=== PATIENT | female | born 1965 | race Caucasian/White ===

== ENCOUNTER → 2017-03-31 | Day surgery (SDC) | payer OTHER ==
[~2017-03-31] MED LIST: AUGMENTIN 875-1 EACH PO; Calcium Carbonate PO; DEPAKOTE500 MG PO; FENTANYL CITRATE/PF 100MCG/2 ML INJ ONE; GEODON20 M1 PO; HALCION0.25 MG PO; HYDROXYZINE HCL25 MG PO; HYOSCYAMINE SULFATE 0.5 MG/ML AMP ONE; IBUPROFEN400 MG PO; LIDOCAINE HCL 2% LOCAL INJ 5 ML SDV VIAL INJ ONE; LISINOPRIL30 MG; LISINOPRIL40 MG PO; LITHIUM CARBON300 M2 PO; MIDAZOLAM HCL 2 MG/2 ML VIAL ONE; MS CONTIN30 MG PO; Multivitamins/Minerals PO; OMEPRAZOLE20 MG PO; PROPOFOL IV EMULSION 10 MG/ML 50 ML VIAL ONE; PROZAC20 MG PO; PROZAC40 MG; SENOKOT8.6 MG PO; SEROQUEL100 MG PO; SUCRALFATE1 GM PO; SYNTHROID100 MCG PO; SYNTHROID25 MCG PO; TEGRETOL XR200 MG; TRAZODONE HCL100 MG; TYLENOL WITH C1 EACH PO; ULTRAM50 MG PO; WELLBUTRIN SR150 MG PO; ZOFRAN ODT4 MG PO
[2017-03-31 13:48] LABS: WBC,FECAL (FECAL LACTOFERRIN) NEGATIVE (NEGATIVE)
--- NOTE | 2017-03-31 14:02 | Operative Report ---
DATE OF PROCEDURE: March 31, 2017 REFERRING PHYSICIAN: Dr. Clementine Bolanos. PROCEDURE PERFORMED: 1. Esophagogastroduodenoscopy with biopsies. 2. Colonoscopy with polypectomy and biopsies. INDICATIONS FOR ESOPHAGOGASTRODUODENOSCOPY: Heartburn indigestion. INDICATIONS FOR COLONOSCOPY: Colorectal cancer screening, history of diarrhea, anemia. MEDICATION: Patient was done under MAC. Please see anesthesiologist's note. PROCEDURE: With the patient in the left lateral decubitus position, the flexible fiberoptic Olympus gastroscope was introduced into the esophagus under direct visualization without any difficulty. There was some patchy erythema noted in the distal esophagus. Some minimal focal nodularity was noted at the GE junction, and that was biopsied. The scope was then advanced with ease into the stomach, traversing a small hiatal hernia. Gastric stapling site was noted at approximately 10 cm distal to the lower esophageal sphincter. The anastomosis was patent, and it was traversed with ease with the scope, which was advanced into the distal stomach. Mucosa overlying the distal body and the antrum revealed some patchy erythema and low-grade to moderate edema, and biopsies were obtained and sent to stain for H. pylori. Pylorus appeared to be of normal contour and shape, was intubated with ease, and the scope was advanced all the way to the 2nd portion of the duodenum. Biopsies were obtained from the proximal 2nd portion to rule out sprue. Mucosa overlying the duodenal bulb appeared to be within normal limits. The scope was then withdrawn back into the stomach, and it was withdrawn above the gastric stapling site and then it was retroflexed. The mucosa overlying the fundus and the cardia appeared to be within normal limits. The scope was then straightened out. The scope was subsequently withdrawn. Patient tolerated procedure well. IMPRESSION: 1. Distal esophagitis. 2. Minimal nodularity at gastroesophageal junction biopsied. 3. Small hiatal hernia. 4. Status post gastric stapling. Stapling site patent. 5. Gastritis biopsied. Biopsies sent to stain for H. pylori. 6. Rule out sprue. PLAN: Follow up histology. Initiate Protonix 40 mg 1 p.o. q.a.m. a.c. Patient was then turned around and after adequate lubrication of the anal canal, a flexible fiberoptic Olympus colonoscope was inserted into the rectum with ease and advanced all the way to the cecum. Mucosa overlying the cecum appeared to be within normal limits. The ileocecal valve was intubated, and the scope was advanced into the terminal ileum. Biopsies were obtained. The scope was then withdrawn back into the colon. It was then withdrawn slowly. Mucosa overlying the ascending colon appeared to be within normal limits. One polyp was hot biopsied from the transverse colon. Mild patchy inflammatory changes were noted in the left colon. Random biopsies were obtained. Two polyps were hot biopsied from the sigmoid colon. The scope was then retroflexed into the distal rectum and small internal hemorrhoids were noted, none of which was actively bleeding. The scope was then straightened out. The scope was subsequently withdrawn after securing an adequate stool specimen that was sent for the appropriate stool studies. Patient tolerated the procedure well. IMPRESSION: 1. Transverse colon polyp hot biopsied. 2. Mild patchy left-sided colitis. 3. Sigmoid colon polyps times 2 hot biopsied. 4. Internal hemorrhoids, none actively bleeding. PLAN: Follow up histology. Follow up stool studies. Initiate VSL#3 one p.o. b.i.d. Start Bentyl 10 mg 1 p.o. t.i.d. RectiCare with lidocaine 5% apply p.r.n. to perianal area. Job#: [id number] EV cc: CLEMENTINE BOLANOS MD
[2017-03-31 15:04] LABS: C DIFFICILE TOXIN A&B AMP PROB **POSITIVE** (NEGATIVE)
== END | disposition home or self-care (01) ==
LOC: OR 10:21
PROVIDERS: ATTEND Internal Medicine Gastroenterology
DX: D64.9 Anemia, unspecified (principal); D12.3 Benign neoplasm of transverse colon; K51.50 Left sided colitis without complications; K22.8 Other specified diseases of esophagus; K21.0 Gastro-esophageal reflux disease with esophagitis; K44.9 Diaphragmatic hernia without obstruction or gangrene; Z98.84 Bariatric surgery status; K64.8 Other hemorrhoids; E03.9 Hypothyroidism, unspecified; D69.6 Thrombocytopenia, unspecified; N20.0 Calculus of kidney; I10 Essential (primary) hypertension; F31.9 Bipolar disorder, unspecified; F41.9 Anxiety disorder, unspecified; F17.210 Nicotine dependence, cigarettes, uncomplicated; Z01.810 Encounter for preprocedural cardiovascular examination; Z68.38 Body mass index [BMI] 38.0-38.9, adult; Z83.79 Family history of other diseases of the digestive system
CPT/HCPCS: 43239; 45384; 83630; 83993; 87045; 87177; 87328; 87493; 93005; J1980; J2001; J2250; 45378

== ENCOUNTER 2018-12-15 08:21 | Emergency (ER) | payer OTHER ==
[~2018-12-15] VITALS: Ht 170.2 cm; Wt 127.0 kg
[~2018-12-15 08:21] MED LIST changes: -FENTANYL CITRATE/PF 100MCG/2 ML INJ ONE; -HYOSCYAMINE SULFATE 0.5 MG/ML AMP ONE; -LIDOCAINE HCL 2% LOCAL INJ 5 ML SDV VIAL INJ ONE; -MIDAZOLAM HCL 2 MG/2 ML VIAL ONE; -PROPOFOL IV EMULSION 10 MG/ML 50 ML VIAL ONE
--- OUTSIDE RECORDS SUMMARY | 2018-12-15 08:24 | XMS REPORT | Encounter Summary ---
Author Organization Unknown Address [address] [place] [address] Phone [phone] Care Team Providers Care Lead Medical Technologist Name Role Phone Dr. Emma Bolanos 3 [phone] Emma Bolanos MD 3 [phone] Eduin Amaro MD 82 [phone] [facility] 2 [phone] Keegan Hyatt MD 124 [phone] Reason for Visit Hypercholesterolemia; Benign essential hypertension; Bipolar disorder; other - see typed reason Instructions 1. Benign essential hypertension lisinopril 40 mg tablet CBC w/ auto diff TSH, serum or plasma 2. Bipolar disorder bipolar disorder: care instructions learning about mood disorders 3. Abnormal weight gain endocrinology, diabetes & metabolism referral - PLEASE FAX NOTES TO [phone]. 4. Hypercholesterolemia lipid panel, serum CMP, serum or plasma 5. Increased frequency of urination HbA1c (hemoglobin A1c), blood urinalysis, dipstick 6. Tobacco user stopping smoking: care instructions 7. Family history of premature coronary heart disease cardiology referral - PLEASE FAX NOTES TO [phone]. 8. Lateral epicondylitis of right humerus tennis elbow strap Discussion Note: None recorded. Plan of Care Reminders Provider Appointments Est Patient 06/11/2018 1:30PM Emma Bolanos MD Lab HbA1C (Hemoglobin a1C), Blood 05/14/2018 [facility] Urinalysis, Dipstick 05/14/2018 [facility] ([facility] Labelle Lipid Panel, Serum 05/14/2018 [facility] CMP, Serum or Plasma 05/14/2018 [facility] CBC W/ Auto Diff 05/14/2018 [facility] TSH, Serum or Plasma 05/14/2018 [facility] Referral Cardiology Referral 05/14/2018 Eduin Amaro MD Endocrinology, Diabetes & Metabolism Referral 05/14/2018 Zane Platt MD (Endocrinology) Procedures None recorded. Surgeries None recorded. Imaging None recorded. Medications Name Start Date acetaminophen 300 mg-codeine 30 mg tablet TID - PRN acetaminophen 300 mg-codeine 60 mg tablet benztropine 0.5 mg tablet bupropion HCl SR 200 mg tablet,12 hr sustained-release Take 1 tablet twice a day by oral route. dicyclomine 10 mg capsule TAKE 1 CAPSULE BY MOUTH TWICE DAILY divalproex ER 500 mg tablet,extended release 24 hr hydroxyzine HCl 50 mg tablet Take 1 tablet every day by oral route at bedtime. ibuprofen 800 mg tablet lisinopril 40 mg tablet TAKE 1 TABLET BY MOUTH ONCE A DAY metronidazole 500 mg tablet omeprazole 20 mg capsule,delayed release TAKE 1 CAPSULE BY MOUTH ONCE A DAY triazolam 0.25 mg tablet Take 1 tablet every day by oral route at bedtime. ziprasidone 40 mg capsule Take 1 capsule twice a day by oral route for 90 days. Medications Administered None recorded. Vitals Height Weight BMI Blood Pressure 5 ft 7 in 261 lbs 40.9 kg/m2 (1) 140/80 mm[Hg] (2) 142/82 mm[Hg] Lab Results Date Name Specimen Result Interpretation Description Value Range Status Address 05/14/2018 CBC W/ Auto Diff Wbc 6.28 x10*3/L 3.98-10.04 x10*3/L Final [facility] Laboratory: [address] Rbc 4.73 10*12/L 3.93-5.22 10*12/L Final [facility] Laboratory: [address] Hemoglobin 12.30 g/dL 11.20-15.70 g/dL Final [facility] Laboratory: [address] Hematocrit 38.3 % 34.1-44.9 % Final [facility] Laboratory: [address] Mcv 81.0 fL 80.0-100.0 fL Final [facility] Laboratory: [address] Mch 26.0 pg 25.6-32.2 pg Final [facility] [facility] [address] Low Mchc 32.1 g/dL 32.2-35.5 g/dL Final [facility] Laboratory: [address] RDW-SD 44.9 fL 36.4-46.3 fL Final [facility] Laboratory: [address] [place] Platelet Count 248.0 k/uL 182.0-369.0 k/uL Final [facility] Laboratory: [address] [place] High Mpv 11.6 fL 7.5-11.5 fL Final [facility] Laboratory: [address] [place] Neut% 57.5 % 34.0-71.1 % Final [facility] Laboratory: [address] [place] Lymph% 30.7 % 19.3-51.7 % Final [facility]: [address] [place] Mon% 10.4 % 4.7-12.5 % Final [facility]: [address] [place] Eos% 1.1 % 0.7-5.8 % Final [facility] Laboratory: [address] [place] Baso% 0.3 % 0.1-1.2 % Final [facility] Laboratory: [address] [place] Neut# 3.6 x10*3/L 1.6-6.1 x10*3/L Final [facility] Laboratory: [address] [place] Lymph# 1.9 x10*3/L 1.2-3.7 x10*3/L Final [facility] Laboratory: [address] [place] Mon# 0.7 x10*3/L 0.2-0.9 x10*3/L Final [facility] Laboratory: [address] [place] Eos# 0.07 x10*3/L 0.04-0.36 x10*3/L Final [facility] Laboratory: [address] [place] Baso# 0.02 x10*3/L 0.01-0.08 x10*3/L Final [facility] Laboratory: [address] [place] 05/14/2018 CMP, Serum or Plasma Alt 24 U/L 0-55 U/L Final [facility] [address] [facility] Ast 25 U/L 5-34 U/L Final [facility] Laboratory: [address], [place] Bun 13.2 mg/dL 9.8-20.1 mg/dL Final [facility] Laboratory: [address], [place] Alk Phos 51 unit/L 40-150 unit/L Final [facility] Laboratory: [address], [place] Glucose 95 mg/dL 70-99 mg/dL Final [facility] Laboratory: [address], [place] Albumin 3.9 g/dL 3.5-5.0 g/dL Final [facility] Laboratory: [address], [place] Creatinine 0.80 mg/dL 0.57-1.11 mg/dL Final [facility] Laboratory: [address], [place] eGFR Non- >60 mL/min/1.73m2 Final [facility] [address] [facility] Total Bilirubin 0.2 mg/dL 0.2-1.2 mg/dL Final [facility] [address] [facility] eGFR - >60 mL/min/1.73m2 Final [facility] [address] [facility] Sodium 141 mEq/L 136-145 mEq/L Final [facility] Laboratory: [address], [place] Potassium 4.5 mEq/L 3.5-5.1 mEq/L Final [facility] [address] [facility] Chloride 104 mmol/L 98-107 mmol/L Final [facility] Laboratory: [address], [place] Total Protein 7.3 g/dL 6.4-8.3 g/dL Final [facility] [address] [facility] Calcium 9.8 mg/dL 8.4-10.2 mg/dL Final [facility] Laboratory: [address], [place] High Co2 32.0 mmol/L 22.0-29.0 mmol/L Final [facility] Laboratory: [address], [place] Anion Gap 5 calc Final [facility] [address] [facility] 05/14/2018 Lipid Panel, Serum High Hdl 65 mg/dL 40-60 mg/dL Final [facility] Laboratory: [address] High Triglyceride 257 mg/dL 0-149 mg/dL Final [facility] Laboratory: [address] VLDL Calc. 51 mg/dL Final [facility]: [address] cholesterol/HDL Ratio 3.2 mg/dL Final [facility] Laboratory: [address] non-HDL Cholesterol Calc. 145 mg/dL 0-160 mg/dL Final [facility] Laboratory: [address] High Cholesterol 210 mg/dL 0-199 mg/dL Final [facility] Laboratory: [address] LDL Calc. 94 mg/dL 0-130 mg/dL Final [facility] Laboratory: [address] [place] [address], [place] 05/14/2018 TSH, Serum or Plasma Tsh 4.574 uIU/mL 0.350-4.940 uIU/mL Final [facility] Laboratory: [address] [place] [place] [address], [place] 05/14/2018 HbA1C (Hemoglobin a1C), Blood A1C W/eag 5.7 % 1.0-5.7 % Final [facility] Laboratory: [address] Average Blood Glucose 117 mg/dL Final [facility] Laboratory: [address] [place] [address], [place] 05/14/2018 Urinalysis, Dipstick Color Color yellow [facility] ([facility]) Labelle: [address] [place] Color Appearance clear [facility] ([facility] Label[place]: [address] [place] Color Glucose negative [facility] ([facility] [place]: [address] [place] Color Bilirubin small [facility] ([facility]) [place]: [address] [place] Color Ketones trace [facility] ([facility]) Labelle: [address] [place] Color Specific [place] 1.030 [facility] ([facility]) [place]: [address] [place] Color Blood negative [facility] ([facility]) Labelle: [address] [place] Color PH 5.5 [facility] ([facility] [place]: [address] [place] Color Protein negative [facility] ([facility]) [place]: [address] [place] Color Urobilinogen 0.2 [facility] ([facility]) Labelle: [address] [place] Color Nitrites negative [facility] ([facility]) [place]: [address] [place] Color Leukocytes negative [facility] ([facility]) Labelle: [address] [facility], [place] Allergies Code Code System Name Reaction Severity Status Onset NKDA Problems Name Status Onset Date Source Body Mass Index 30+ - Obesity Active 01/08/2016 Bipolar Disorder Active 01/08/2016 Benign Essential Hypertension Active 01/08/2016 Gastroesophageal Reflux Disease without Esophagitis Active 01/08/2016 Atypical Chest Pain Active 01/08/2016 High Hemoglobin a1C Level Active 02/11/2016 Dysfunctional Voiding of Urine Active 02/11/2016 Blood Chemistry Abnormal Active 02/11/2016 Hypercholesterolemia Active 03/28/2016 Polyp of Colon Active 08/05/2017 Hypothyroidism Active Chronic Pain Active Hypertensive Disorder Active Procedures Date Name Performed by 09/23/2015 Colonoscopy Information not available 06/21/2015 Gastrointestinal Surgery Information not available 02/20/2015 Carpal Tunnel Surgery Information not available Gastric Bypass for Obesity Information not available Cholecystectomy (Gall Bladder Removal) Information not available Hysterectomy (Partial) Information not available Vaccine List Vaccine Type Tdap 02/11/20160.5 mL Social History Smoking Status Light Tobacco Smoker (1/4 PPD) Past Encounters 05/14/2018 Benign Essential Hypertension; Bipolar Disorder; Abnormal Weight Gain; Hypercholesterolemia; Increased Frequency of Urination; Tobacco User; Family History of Premature Coronary Heart Disease; Lateral Epicondylitis of Right Humerus Emma Bolanos MD: [address] [place] [phone], Ph. History of Present Illness Note:53yo female presents for follow-up. Last visit 08/28/17. Several concerns today:<div>1) Elbow pain- Since last visit, pt has been having trouble with bilateral elbow pain for past month starting with right elbow then left. Has been seeing pain management, Dr Hyatt & had XR of right elbow last month in [place]. Pt did not have any pain relief with T#3 for her elbows, but did get some relief with ibuprofen 800mg two tablets once a day. 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 Pt is right handed. <div><div>Chronic back pain -. Had spinal cord stimulator placed 4yrs ago, but had complications. Is followed by pain management, Dr. Keegan Hyatt. No longer on morphine.</div><div>
< /div><div>2) Pt notes that she's not doing very well with her bipolar d/o - depressed mood right now. Has been off Geodon for past 4months - was causing weight gain. </div><div>Saw MALLORIE Price for weight control in Feb 2018, but not improvement. Went to [facility]. Is trying to watch diet. Tapered off Geodon by psych, Dr Massey. Goes to psych every three months. Was seen by psych last month.</div><div>Is discouraged about weight. Has gained 60# in past 2yrs. Had gastric bypass about 25yrs ago. Has gastric ring removed 2yrs ago bariatric surgeon at [facility], Dr Olmedo.
</div><div>
</div><div>3) Shortness of breath with exertion. Pt attributes this to weight gain & deconditioning. Strong family hx of premature heart disease. Brother at age 52 from [place]. Father at 52yo from [place] (had liver transplant). Mother at 52yo from anxiety attack & [place] (hx COPD & CHF).</div><div>Here today for medication refill of htn medication.</div><div>Has been sober off drugs (crack cocaine) for past 2yrs. Has smoked about 30yrs - was at 1ppd most of that time. Now down to 2-3 cigarettes/day.</div><div>
</div><div>Previously:
</div>< div><div><span style="font-size: 14px;">Pt has established with a new psychiatrist in [place] at [facility], </span>Shilpa<span style="font-size: 14px;">. Still on Wellbutrin SR </span>200mg<span style="font- size: 14px;"> bid & depakote ER </span>500mg<span style="font-size: 14px;"> two tablets at night. Pineda isn't working well for sleep. Was on Ambien in [facility]. Has been on Trileptal, Tegretol, Donalds, Zyprexa, Seroquel, Risperdal, tra zadone Request hydroxyzine to help with evelin. Has seen </span>Lalita<span style="font-size: 14px;"> in same psychiatry office. Is planning to follow-up with </span>Jhon<span style="font-size: 14px;">. Has been on several different psych medications since Sep.</span></div><div><div>
</div><div><div ><div>PMHx:</div><div>Hx of bipolar d/o (dx'd about 20yrs ago). Using hydroxyzine to 'calm down' currently.
<span style="font-size: 14px;">Htn - Currently on lisinopril </span>40mg<span style="font-size: 14px;"> qd. </span>Hx <span style="font-size: 14px;"> of htn for </span>20yrs<span style="font-size: 14px;">.</span>
</div><div>Hypothyroidism - currently on Synthroid 25mcg/d< /div><div>GERD - on omeprazole 20mg qd.
<div>Chronic back pain - On morphine 30mg bid. Had spinal cord stimulator placed 4yrs ago, but had complications. Is followed by pain management, Dr. Keegan Hyatt. Problems with right leg. Using Pensaid cream on leg & left carpal tunnel.</div></div></div></div></div>< /div></div></div> Review of Systems:ROS as noted in the HPI Review of Systems Comprehensive General Adult ROS Reported By: Patient Constitutional: Constitutional: no fever Eyes: Eyes: no vision change Cardiovascular: Cardiovascular: no chest pain Respiratory: Respiratory: no cough, no wheezing, shortness of breath Gastrointestinal: Gastrointestinal: no abdominal pain Musculoskeletal: Musculoskeletal: arthralgias/joint pain Neurologic: Neurologic: no loss of consciousness, no headaches Psychiatric: Psych: depression, sleep disturbances, anxiety Physical Exam General Adult Exam (Female) Reported By: Patient Constitutional: General Appearance: healthy-appearing, well-nourished, well-developed. Level of Distress: NAD Psychiatric: Insight: good judgement. Mental Status: active and alert, anxious. Memory: recent memory normal, remote memory normal Head: Head: normocephalic, atraumatic Eyes: Lids and Conjunctivae: non-injected. EOM: EOMI ENMT: Hearing: no hearing loss. Oropharynx: moist mucous membranes Lungs: Respiratory effort: no dyspnea. Auscultation: breath sounds normal, good air movement, no wheezing Cardiovascular: Heart Auscultation: RRR, normal S1, normal S2, no murmurs Abdomen: Bowel Sounds: normal. Inspection and Palpation: soft, no tenderness Musculoskeletal:: Motor Strength and Tone: normal motor strength. Joints, Bones, and Muscles: normal movement of all extremities, tenderness. Extremities: no edema
--- NOTE | 2018-12-15 08:30 | NUR ---
DR. LISA AT BEDSIDE EVALUATING PATIENT
[2018-12-15] MEDS ORDERED: KETOROLAC TROMETHAMINE 60 MG/2 ML VIAL IM ONE (09:00)
[2018-12-15] MEDS ORDERED: DEXAMETHASONE SOD PHOS 10 MG/1 ML VIAL IM ONE (09:00)
== END 2018-12-15 09:35 | disposition home or self-care (01) ==
LOC: ER 08:21
DX: M54.41 Lumbago with sciatica, right side (principal); R26.2 Difficulty in walking, not elsewhere classified; I10 Essential (primary) hypertension; E03.9 Hypothyroidism, unspecified; K21.9 Gastro-esophageal reflux disease without esophagitis
CPT/HCPCS: 99283; J1100; J1885